=== PATIENT | female | born 1985 | race Caucasian/White ===

== ENCOUNTER 2017-10-06 04:51 | Emergency (ER) | payer BC, OTHER ==
[~2017-10-06] VITALS: Ht 157.5 cm; Wt 52.2 kg
[2017-10-06] MEDS ORDERED: ESCITALOPRAM 20 MG (05:14)
[2017-10-06] MEDS ORDERED: ORSYTHIA (05:14)
[2017-10-06 05:16] LABS: BILIRUBIN,URINE NEGATIVE (NEGATIVE); CLARITY,URINE VERY CLOUDY; COLOR,URINE YELLOW; GLUCOSE, URINE (UA) NEGATIVE (NEGATIVE); KETONES,URINE NEGATIVE (NEGATIVE); LEUKOCYTE ESTERASE ,URINE 3+ (NEGATIVE); NITRITE,URINE POSITIVE (NEGATIVE); PH,URINE 6 (5-9); PROTEIN,URINE 4+ (NEGATIVE); UROBILINOGEN,URINE NORMAL (NORMAL)
[2017-10-06] MEDS ORDERED: LACTATED RINGERS 1,000 ML IV ONE (05:19)
[2017-10-06] MEDS ORDERED: KETOROLAC 30 MG/ML VIAL IVP STA (05:19)
[2017-10-06 05:21] LABS: BACTERIA,URINE LARGE /HPF; RBC,URINE 50-100 /HPF; WBC,URINE TNTC /HPF
--- NOTE | 2017-10-06 05:27 | ED Abdominal Pain ---
General Chief Complaint: Abdominal/GI Problems Stated Complaint: PAIN OVER RT OVARY ON TO BACK Nursing Triage Note: PT PRESENTS TO ER WITH COMPLAINT OF RLQ ABD PAIN THAT RADIATES TO THE BACK. PT STATES SHE FEELS IT IS WHERE HER RIGHT OVARY IS. LMP 09/30/17 Sepsis Screen: No Definite Risk Source of Information: Patient Exam Limitations: No Limitations History of Present Illness Date Seen by Provider: Oct 06, 2017 Time Seen by Provider: 05:03 Initial Comments PT ARRIVES VIA POV FROM HOME C/O RLQ PAIN RADIATING TO RIGHT FLANK SINCE 0 YESTERDAY--WOKE HER UP YESTERDAY BACK PAIN WAS SEVERE, AND PAIN WAXED AND WANED AND FELT LIKE SEVERE CRAMPING/MUSCLE SPASMS. NO PAIN IN BACK FEELS LIKE A BAD BRUISE PAIN IN RLQ / RIGHT GROIN IS NOW "HORRIBLE" NO URINARY SYMPTOMS PT UNAWARE OF FEVER--TEMP IS 100 ON ARRIVAL HERE NO NAUSEA/VOMITING LMP--BEGAN ON Thursday09/30/17 AND IS ALMOST OVER NOW. NORMAL. ON OCP'S PCP: DR. MONTOYA Allergies and Home Medications Allergies Coded Allergies: No Known Drug Allergies (Unverified , 10/06/17) Home Medications Ciprofloxacin HCl 500 Mg Tablet, 500 MG PO BID Prescribed by: LAURA RAMIREZ on 10/06/17645 Tramadol HCl 50 Mg Tablet, 50 MG PO Q4H Prescribed by: LAURA RAMIREZ on 10/06/1746 Patient Home Medication List Home Medication List Reviewed: Yes Review of Systems Constitutional: see HPI Respiratory: No Symptoms Reported Cardiovascular: No Symptoms Reported Gastrointestinal: See HPI, Abdominal Pain; Denies Nausea, Denies Vomiting Genitourinary: Denies Burning, Denies Frequency; Flank Pain; Denies Hematuria, Denies Incontinence, Denies Pain, Denies Urgency Musculoskeletal: see HPI, back pain Skin: no symptoms reported Psychiatric/Neurological: No Symptoms Reported Endocrine: No Symptoms Reported Hematologic/Lymphatic: No Symptoms Reported Past Sbxgdml-Deyren-Wuqxre Hx Patient Social History Alcohol Use: Denies Use Recreational Drug Use: No Smoking Status: Never a Smoker Recent Foreign Travel: No Contact w/Someone Who Travel: No Recent Infectious Disease Expo: No Recent Hopitalizations: No Immunizations Up To Date Tetanus Booster (TDap): Unknown PED Vaccines UTD: Yes Seasonal Allergies Seasonal Allergies: No Past Medical History Surgeries: Yes (LAPAROSCOPY--ABLATION OF ENDOMETRIOSIS IMPLANTS AND APPY 2013) Abdominal, Appendectomy, Tonsillectomy Respiratory: No Cardiac: No Neurological: No : No Female Reproductive Disorders: Endometriosis Genitourinary: No Gastrointestinal: No Musculoskeletal: No Endocrine: No HEENT: No Cancer: No Psychosocial: No Integumentary: No Blood Disorders: No Physical Exam Vital Signs Vital Signs - First Documented 10/06/17 05:01 Temp 100.4 Pulse 77 Resp 20 B/P (MAP) 120/73 (89) Pulse Ox 100 O2 Delivery Room Air Capillary Refill : Less Than 3 Seconds Height/Weight/BMI Height: 5'2.00" Weight: 115lbs. oz. 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 tested, no motor/sensory deficits, alert, normal mood/affect, oriented x 3 Skin: normal color, warm/dry Focused Exam Lactate Level 10/06/17 05:27: Lactic Acid Level 0.98 Lactic Acid Level Laboratory Tests Test 10/06/17 05:27 Lactic Acid Level 0.98 MMOL/L (0.50-2.00) Progress/Results/Core Measures Results/Orders Lab Results Laboratory Tests Test 10/06/17 05:08 10/06/17 05:27 Range/Units Urine Color YELLOW Urine Clarity VERY CLOUDY H Urine pH 6 5-9 Urine Specific [place] 1.020 1.016-1.022 Urine Protein 4+ NEGATIVE Urine Glucose (UA) NEGATIVE NEGATIVE Urine Ketones NEGATIVE NEGATIVE Urine Nitrite POSITIVE H NEGATIVE Urine Bilirubin NEGATIVE NEGATIVE Urine Urobilinogen NORMAL NORMAL MG/DL Urine Leukocyte Esterase 3+ H NEGATIVE Urine RBC (Auto) 4+ H NEGATIVE Urine RBC 50-100 H /HPF Urine WBC TNTC H /HPF Urine Squamous Epithelial Cells 10-25 H /HPF Urine Crystals NONE /LPF Urine Bacteria LARGE H /HPF Urine Casts NONE /LPF Urine Mucus LARGE H /LPF Urine Culture Indicated YES White Blood Count 11.1 H 4.3-11.0 10^3/uL Red Blood Count 3.84 L 4.35-5.85 10^6/uL Hemoglobin 12.4 11.5-16.0 G/DL Hematocrit 37 35-52 % Mean Corpuscular Volume 96 80-99 FL Mean Corpuscular Hemoglobin 32 25-34 PG Mean Corpuscular Hemoglobin Concent 34 32-36 G/DL Red Cell Distribution Width 12.8 10.0-14.5 % Platelet Count 259 130-400 10^3/uL Mean Platelet Volume 8.7 7.4-10.4 FL Neutrophils (%) (Auto) 77 H 42-75 % Lymphocytes (%) (Auto) 14 12-44 % Monocytes (%) (Auto) 8 0-12 % Eosinophils (%) (Auto) 1 0-10 % Basophils (%) (Auto) 0 0-10 % Neutrophils # (Auto) 8.5 H 1.8-7.8 X 10^3 Lymphocytes # (Auto) 1.5 1.0-4.0 X 10^3 Monocytes # (Auto) 0.9 0.0-1.0 X 10^3 Eosinophils # (Auto) 0.1 0.0-0.3 10^3/uL Basophils # (Auto) 0.0 0.0-0.1 10^3/uL Sodium Level 138 135-145 MMOL/L Potassium Level 3.7 3.6-5.0 MMOL/L Chloride Level 106 98-107 MMOL/L Carbon Dioxide Level 23 21-32 MMOL/L Anion Gap 9 5-14 MMOL/L Blood Urea Nitrogen 13 7-18 MG/DL Creatinine 0.75 0.60-1.30 MG/DL Estimat Glomerular Filtration Rate > 60 BUN/Creatinine Ratio 17 Glucose Level 94 70-105 MG/DL Lactic Acid Level 0.98 0.50-2.00 MMOL/L Calcium Level 9.0 8.5-10.1 MG/DL Total Bilirubin 0.9 0.1-1.0 MG/DL Aspartate Amino Transf (AST/SGOT) 17 5-34 U/L Alanine Aminotransferase (ALT/SGPT) 11 0-55 U/L Alkaline Phosphatase 49 40-136 U/L Total Protein 6.6 6.4-8.2 GM/DL Albumin 4.0 3.2-4.5 GM/DL Amylase Level 38 25-125 U/L Lipase 9 8-78 U/L My Orders Orders - LAURA RAMIREZ DO Ua Culture If Indicated (10/06/17 05:03) Urine Bedside (10/06/17 05:03) Saline Lock/Iv-Start (10/06/17 05:19) Ct Abd/Pelvis Wo(Kidney Stone) (10/06/17 05:19) Amylase (10/06/17 05:19) Cbc With Automated Diff (10/06/17 05:19) Comprehensive Metabolic Panel (10/06/17 05:19) Lactic Acid Analyzer (10/06/17 05:19) Lipase (10/06/17 05:19) Blood Culture (10/06/17 05:19) Abdomen/Kub 1view (10/06/17 05:19) Saline Lock/Iv-Start (10/06/17 05:19) Lactated Ringers (Lr 1000 Ml Iv Solution (10/06/17 05:19) Ketorolac Injection (Toradol Injection) (10/06/17 05:19) Urine Culture (10/06/17 05:08) Ceftriaxone Injection (Rocephin Injectio (10/06/17 05:30) Medications Given in ED Current Medications Medications Dose Ordered Sig/Chandler Route Start Time Stop Time Status Last Admin Dose Admin Ceftriaxone Sodium 1000 mg/ Sodium Chloride 50 ml @ 100 mls/hr ONCE ONCE IV 10/06/17 05:30 10/06/17 05:59 DC 10/06/17 06:05 100 MLS/HR Lactated Ringer's 1,000 ml @ 0 mls/hr Q0M ONCE IV 10/06/17 05:19 10/06/17 05:23 DC 10/06/17 05:35 1,000 MLS/HR Vital Signs/I&O 10/06/17 05:01 Temp 100.4 Pulse 77 Resp 20 B/P (MAP) 120/73 (89) Pulse Ox 100 O2 Delivery Room Air Blood Pressure Mean: 89 Urine -Bedside: Negative Progress Progress Note : Progress Note PAIN MUCH IMPROVED WITH TORADOL Diagnostic Imaging Comments KUB--NO ACUTE PROCESS, PENDING RADIOLOGIST REVIEW CT ABDOMEN / PELVIS--APPARENT DUPLEX RIGHT KIDNEY WITH MILD TO MODERATE RIGHT HYDRONEPHROSIS/HYDROURETER WITH RIGHT PERIURETERAL STRANDING. NO EVIDENCE OF URETERAL STONE. . SUSPECTED 2 CM LEFT OVARIAN CYST--PER [facility] VIA FAX @ [id number] Reviewed: Reviewed by Me Departure Impression Primary Impression: Urinary tract infection Additional Impression: Pyelonephritis Disposition: 01 HOME, SELF-CARE Condition: Improved Departure-Patient Inst. Referrals: BRE MONTOYA MD (PCP/Family) Primary Care Physician Patient Instructions: Urinary Tract Infection, Adult (DC) Add. Discharge Instructions: LOTS OF CLEAR LIQUIDS--NO COFFEE, POP OR TEA TYLENOL AND MOTRIN NEEDED FOR PAIN OR FEVER FOLLOW UP WITH DR. MONTOYA IN 2-3 DAYS FOR FURTHER CARE All discharge instructions reviewed with patient and/or family. Voiced understanding. Scripts Tramadol HCl (Ultram) 50 Mg Tablet 50 MG PO Q4H, #20 TAB Prov: LAURA RAMIREZ DO 10/06/17 Ciprofloxacin HCl (Cipro) 500 Mg Tablet 500 MG PO BID, #20 TAB Prov: LAURA RAMIREZ DO 10/06/17 LAURA RAMIREZ DO Oct 06, 2017 05:27
[2017-10-06] MEDS ORDERED: cefTRIAXone INJECTION 1,000 MG in NS (IVPB) 50 ML IV ONE (05:30)
[2017-10-06 05:39] LABS: BASOPHILS % (AUTO) 0 % (0-10); EOSINOPHILS # (AUTO) 0.1 10^3/uL (0.0-0.3); EOSINOPHILS % (AUTO) 1 % (0-10); HEMATOCRIT 37 % (35-52); HEMOGLOBIN 12.4 G/DL (11.5-16.0); LYMPHOCYTES # (AUTO) 1.5 X 10^3 (1.0-4.0); LYMPHOCYTES % (AUTO) 14 % (12-44); MEAN CORPUSCULAR HEMOGLOBIN 32 PG (25-34); MEAN CORPUSCULAR HGB CONC 34 G/DL (32-36); MEAN CORPUSCULAR VOLUME 96 FL (80-99); MEAN PLATELET VOLUME 8.7 FL (7.4-10.4); MONOCYTES # (AUTO) 0.9 X 10^3 (0.0-1.0); MONOCYTES % (AUTO) 8 % (0-12); NEUTROPHILS # (AUTO) 8.5 X 10^3 (1.8-7.8); NEUTROPHILS % (AUTO) 77 % (42-75); PLATELET COUNT 259 10^3/uL (130-400); RED BLOOD COUNT 3.84 10^6/uL (4.35-5.85); RED CELL DISTRIBUTION WIDTH 12.8 % (10.0-14.5); WHITE BLOOD COUNT 11.1 10^3/uL (4.3-11.0)
[2017-10-06 06:01] LABS: ALANINE AMINOTRANSFERASE 11 U/L (0-55); ALKALINE PHOSPHATASE 49 U/L (40-136); AMYLASE 38 U/L (25-125); BILIRUBIN,TOTAL 0.9 MG/DL (0.1-1.0); BUN/CREATININE RATIO 17; CARBON DIOXIDE 23 MMOL/L (21-32); CHLORIDE 106 MMOL/L (98-107); CREATININE SERUM 0.75 MG/DL (0.60-1.30); GFR ESTIMATED > 60; GLUCOSE 94 MG/DL (70-105); LIPASE 9 U/L (8-78); POTASSIUM 3.7 MMOL/L (3.6-5.0); SODIUM 138 MMOL/L (135-145); TOTAL PROTEIN 6.6 GM/DL (6.4-8.2)
[2017-10-06] MEDS ORDERED: CIPR-225 PO (06:46)
[2017-10-06] MEDS ORDERED: TRAM-42 PO (06:46)
[2017-10-06 06:57] VITALS: BP 105/60
--- NOTE | 2017-10-06 07:13 | Diagnostic Imaging Report ---
PROCEDURE: CT urinary tract, rule out kidney stone. TECHNIQUE: Multiple contiguous axial images were obtained through the abdomen and pelvis without the use of intravenous contrast. INDICATION: Right lower quadrant pain. Comparison made with prior examination of 09/09/2007. FINDINGS: The heart size is normal. The lung bases are clear. The liver is normal in size without focal lesions. Gallbladder is unremarkable. No biliary ductal dilatation. Spleen is normal. The pancreas and adrenal glands are unremarkable. Left kidney is normal in appearance. There appears to be mild right hydronephrosis and mild hydroureter with some surrounding right periureteral stranding. There is however no definitive evidence of a ureteral calculus. The aorta is nonaneurysmal. Bowel gas pattern is nonspecific. There is a 2 cm cyst in the pelvis. No ascites. No free air. There is no pelvic mass or adenopathy. The osseous structures are unremarkable. IMPRESSION: Mild right hydronephrosis and hydroureter with some surrounding perinephric and perirenal stranding. There is no definitive evidence of a ureteral calculus. This may reflect recently passed calculus although other etiologies such as ascending UTI or pyelonephritis are a consideration. Recommend clinical correlation. A 2 cm left adnexal cyst, presumably ovarian. This could be better evaluated with pelvic ultrasound if clinically warranted. No other acute abnormality in the abdomen or pelvis. Dictated by: Dictated on workstation # [id number]
--- NOTE | 2017-10-06 07:22 | Diagnostic Imaging Report ---
INDICATION: Right lower quadrant pain. FINDINGS: The lung bases are clear. The bowel gas pattern is nonspecific. There is no free air. There are no abnormal abdominal calcifications. IMPRESSION: Nonspecific bowel gas pattern Dictated by: Dictated on workstation # [id number]
== END 2017-10-06 06:57 | disposition home or self-care (01) ==
LOC: EDUNIT# 04:51 → ER 04:56
DX: N39.0 Urinary tract infection, site not specified (principal); N12 Tubulo-interstitial nephritis, not specified as acute or chronic; Z90.49 Acquired absence of other specified parts of digestive tract; Z90.89 Acquired absence of other organs
CPT/HCPCS: 36415; 74018; 74176; 80053; 81000; 82150; 83605; 83690; 84703; 85025; 87040; 87088; 87186; 96361; 96365; 96375

== ENCOUNTER 2022-04-29 05:29 | Outpatient (CLI) | payer OTHER ==
[~2022-04-29] VITALS: Ht 160 cm; Wt 59.1 kg
[~2022-04-29 05:29] MED LIST: CIPR-225 PO; ESCITALOPRAM 20 MG; ORSYTHIA; TRAM-42 PO
== END 2022-05-01 08:50 ==
LOC: PREOP 05:29
PROVIDERS: ATTEND Obstetrics & Gynecology
DX: Z01.818 Encounter for other preprocedural examination (principal); N88.8 Other specified noninflammatory disorders of cervix uteri

== ENCOUNTER 2022-05-06 08:23 | Day surgery (SDC) | payer OTHER ==
[2022-05-06] VITALS (10 sets, daily range): BP systolic 89–108; BP diastolic 50–74
[2022-05-06] MEDS ORDERED: LACTATED RINGERS 1,000 ML IV PRN (08:30)
[2022-05-06] MEDS ORDERED: LIDOCAINE PF 2% 5 ML (XYLOCAINE) VIAL ONE (08:39)
[2022-05-06] MEDS ORDERED: proPOfol 200 MG/20 ML (DIPRIVAN) VIAL IV ONE (08:39)
[2022-05-06] MEDS ORDERED: fentaNYL INJ 100 MCG/2 ML AMP ONE (08:39)
[2022-05-06] MEDS ORDERED: ONDANSETRON 4 MG/2 ML (SDV) Z0FRAN ONE (08:39)
[2022-05-06] MEDS ORDERED: MIDAZOLAM 2 MG/2 ML (VERSED) VIAL ONE (08:39)
[2022-05-06] MEDS ORDERED: SEVOFLURANE (ULTANE) 15 ML INHAL SOLN ONE (08:39)
[2022-05-06] MEDS ORDERED: BUP/EPI 0.25% 1:200,000 (MARCAINE) 30 ML VIAL ONE (08:45)
[2022-05-06 08:55] LABS: BASOPHILS % (AUTO) 1 % (0-10); EOSINOPHILS # (AUTO) 0.2 10^3/uL (0.0-0.3); EOSINOPHILS % (AUTO) 2 % (0-10); HEMATOCRIT 38 % (35-52); HEMOGLOBIN 12.7 g/dL (11.5-16.0); LYMPHOCYTES # (AUTO) 2.3 10^3/uL (1.0-4.0); LYMPHOCYTES % (AUTO) 36 % (12-44); MEAN CORPUSCULAR HEMOGLOBIN 32 pg (25-34); MEAN CORPUSCULAR HGB CONC 34 g/dL (32-36); MEAN CORPUSCULAR VOLUME 94 fL (80-99); MEAN PLATELET VOLUME 8.5 fL (9.0-12.2); MONOCYTES # (AUTO) 0.5 10^3/uL (0.0-1.0); MONOCYTES % (AUTO) 7 % (0-12); NEUTROPHILS # (AUTO) 3.4 10^3/uL (1.8-7.8); NEUTROPHILS % (AUTO) 53 % (42-75); PLATELET COUNT 314 10^3/uL (130-400); WHITE BLOOD COUNT 6.4 10^3/uL (4.3-11.0)
[2022-05-06] MEDS ORDERED: GLYCOPYRROLATE 0.2 MG/ML (ROBINUL) 2 ML VIAL ONE (09:13)
[2022-05-06] MEDS ORDERED: PHENYLEPHRINE 100 MCG/ML 10 ML (ANESTHESIA) SYR ONE (09:17)
--- NOTE | 2022-05-06 09:35 | Discharge Inst-Women's Service ---
Discharge Inst-Women's Serv Consults/Follow Up Orders/Referrals Dr. Arnold in 2 weeks Activity Nothing Inside Vagina: No Douching, No Thompson (x 1 week), No Tampons Symptoms to Report to : Bleeding Excessive, Pain Increased, Fever Over 101 Degrees F, Vaginal Bleeding Increase, Questions/Concerns For Any Problems or Questions: Contact Your Physician CADY ARNOLD DO May 06, 2022 09:35
[2022-05-06] MEDS ORDERED: IBUP-1773 PO (09:36)
[2022-05-06] MEDS ORDERED: ACHD5005 PO (09:36)
[2022-05-06] MEDS ORDERED: HYDROcodone/APAP 5 MG/325 MG (LORTAB) TAB PO PRN (09:45)
[2022-05-06] MEDS ORDERED: KETOROLAC 30 MG/ML VIAL IVP ONE (09:45)
[2022-05-06] MEDS ORDERED: HYDROmorphone 2 MG/ML VIAL (DILAUDID) IV ONE (09:45)
[2022-05-06] MEDS ORDERED: ONDANSETRON 4 MG/2 ML (SDV) Z0FRAN IVP PRN ×2 (09:45)
[2022-05-06] MEDS ORDERED: D5 LR IV SOLUTION 1,000 ML IV SCH (09:45)
[2022-05-06] MEDS ORDERED: BUP/EPI 0.25% 1:200,000 (MARCAINE) 30 ML VIAL INJ ONE (10:08)
--- NOTE | 2022-05-06 15:32 | OPERATIVE REPORT ---
PREOPERATIVE DIAGNOSIS: A 36-year-old with cervical cyst. POSTOPERATIVE DIAGNOSIS: A 36-year-old with cervical cyst. PROCEDURE: Exam under anesthesia and removal of cervical cyst. SURGEON: Cady Arnold DO ANESTHESIA: LMA, General. ESTIMATED BLOOD LOSS: Minimal. URINE OUTPUT: 100 mL drained at start of the procedure. FLUIDS: 700 mL of lactated Ringer's solution. FINDINGS: A 2 cm cervical cyst, likely a nabothian cyst at the external cervical os. Grossly normal-appearing external female genitalia, normal-appearing cervix. SPECIMEN SENT: Cervical cyst. INDICATIONS FOR PROCEDURE: This 36-year-old female was a patient who had sought care for routine Women's Health visit. She has been attempting to get ; however, noticed that her periods are getting heavier and more painful and they were not light and less painful like they had been in years leading up to this. On examination, I noted a rather large nabothian cyst at the external cervical os including the opening of the cervical os. I discussed with the patient this could be a potential problem. Also discussed with the patient how the cervical cyst could be preventing her from becoming that she desired. Discussed with the patient removal of this and this would not be a good idea to do in the office due to the amount of bleeding that we may incur. Discussed with the patient doing this under anesthesia. She was agreeable to proceed. After all of her questions were answered, consent was obtained in the preoperative area. The patient was taken to the operating room. OPERATIVE REPORT IN DETAIL: Once in the operating room, anesthesia was administered and found to be adequate. She was placed in dorsal lithotomy position, prepped and draped in normal sterile fashion. A timeout was performed. The bladder was drained using straight catheterization. A weighted speculum inserted to the patient's vagina. A ring retractor was used on the cervix, which was grasped at 12 o'clock position using a long Allis clamp. I then performed paracervical block at 3 and 9 o'clock positions on the cervix using 0.25% Marcaine, 5 mL were injected into each site. Care was taken to aspirate for injecting. I then grasped the cystic structure using an Allis clamp. I make a circular incision around it using an 11 blade knife, freeing it from the cervix and the cervical stroma itself. This was sent as cervical cyst biopsy. I am able to remove it intact. I then make the dissection planes of my excision hemostatic using Bovie cautery, after which there was no active bleeding noted from any of my dissection planes. I removed all instruments from the patient's vagina. The patient tolerated the procedure well and was taken to recovery area in stable condition. Lap and sponge count was correct at the end of the procedure. Instrument counts correct as well. Job ID: [id number] DocumentID: [id number] Dictated Date: 05/06/2022 12:46:37 Visual Inspector Date: 05/06/2022 15:31:00 Dictated By: CADY ARNOLD DO
--- NOTE | 2022-05-06 20:39 | Anesthesia-General Post-Op ---
General Patient Condition Mental Status/LOC: Same as Preop Cardiovascular: Satisfactory Nausea/Vomiting: Absent Respiratory: Satisfactory Pain: Controlled Complications: Absent Post Op Complications Complications None Follow Up Care/Instructions Patient Instructions None needed. Anesthesia/Patient Condition Patient Condition Patient is doing well, no complaints, stable vital signs, no apparent adverse anesthesia problems. No complications reported per nursing. D/C home per [facility] Criteria: Yes MAAME PALMA CRNA May 06, 2022 20:39
== END 2022-05-06 11:25 | disposition home or self-care (01) ==
LOC: SDC 08:23
PROVIDERS: ATTEND Obstetrics & Gynecology
DX: N88.8 Other specified noninflammatory disorders of cervix uteri (principal); K21.9 Gastro-esophageal reflux disease without esophagitis
CPT/HCPCS: 36415; 84703; 85025; 86850; 86900; 86901; 87081

== ENCOUNTER → 2023-01-27 | Outpatient (CLI) | payer OTHER ==
[~2023-01-27] VITALS: Ht 160 cm; Wt 58.6 kg
[~2023-01-27] MED LIST changes: +ACHD5005 PO; +BACI1TAB24 PO; +FEXO-14 PO; +IBUP-1773 PO; +IBUP-844 PO; +MULT-1136 PO
== END | disposition home or self-care (01) ==
LOC: PREOP 05:29
PROVIDERS: ATTEND Obstetrics & Gynecology
DX: Z01.818 Encounter for other preprocedural examination (principal)

== ENCOUNTER 2023-02-03 07:34 | Day surgery (SDC) | payer OTHER ==
[2023-02-03] VITALS (11 sets, daily range): BP systolic 98–130; BP diastolic 64–89
[~2023-02-03] VITALS: Ht 160 cm; Wt 58.6 kg
[~2023-02-03 07:34] MED LIST changes: -IBUP-844 PO
--- NOTE | 2023-02-03 08:27 | Progress Note-Pre Operative ---
Pre-Operative Progress Note Date of Available H&P: Feb 03, 2023 Date H&P Reviewed: Feb 03, 2023 Time H&P Reviewed: 08:25 History & Physical: H&P Reviewed, Patient Examed Pre-Operative Diagnosis: CPP, Dysmenorrhea, Infertility CADY ARNOLD DO Feb 03, 2023 08:27
[2023-02-03] MEDS ORDERED: KETOROLAC INJ 30 MG/ML VIAL IVP ONE (08:30)
[2023-02-03] MEDS ORDERED: D5 LR 1,000 ML IV SOLN 1,000 ML IV SCH (08:30)
[2023-02-03] MEDS ORDERED: ONDANSETRON INJECTION 4 MG/2 ML (SDV) IVP PRN ×2 (08:30→12:00)
[2023-02-03] MEDS ORDERED: HYDROcodone/ACETAMINOPHEN 5 MG/325 MG TABLET PO PRN (08:30)
[2023-02-03] MEDS ORDERED: IBUPROFEN 600 MG TABLET PO PRN (08:30)
[2023-02-03 08:42] LABS: BASOPHILS % (AUTO) 1 % (0-10); EOSINOPHILS # (AUTO) 0.1 10^3/uL (0.0-0.3); EOSINOPHILS % (AUTO) 2 % (0-10); HEMATOCRIT 38 % (35-52); LYMPHOCYTES % (AUTO) 39 % (12-44); MEAN CORPUSCULAR HEMOGLOBIN 32 pg (25-34); MEAN CORPUSCULAR HGB CONC 34 g/dL (32-36); MEAN CORPUSCULAR VOLUME 93 fL (80-99); MEAN PLATELET VOLUME 8.7 fL (9.0-12.2); MONOCYTES # (AUTO) 0.4 10^3/uL (0.0-1.0); MONOCYTES % (AUTO) 9 % (0-12); NEUTROPHILS # (AUTO) 2.6 10^3/uL (1.8-7.8); NEUTROPHILS % (AUTO) 49 % (42-75); PLATELET COUNT 323 10^3/uL (130-400); WHITE BLOOD COUNT 5.2 10^3/uL (4.3-11.0)
[2023-02-03] MEDS ORDERED: BUPIVACAINE 0.25% 30 ML VIAL ONE (08:48)
[2023-02-03] MEDS ORDERED: BUPIVACAINE 0.25% 30 ML VIAL IJ ONE (09:05)
[2023-02-03] MEDS: LACTATED RINGERS 1,000 ML 1,000 ML IV PRN ×2 (09:22→11:21)
[2023-02-03] MEDS ORDERED: MIDAZOLAM INJ 2 MG/2 ML VIAL ONE ×2 (09:38→09:49)
[2023-02-03] MEDS ORDERED: MIDAZOLAM INJ 2 MG/2 ML VIAL IVP ONE (09:45)
[2023-02-03] MEDS ORDERED: ROCURONIUM 50 MG/5 ML VIAL IV ONE (09:47)
[2023-02-03] MEDS ORDERED: LIDOCAINE PF 2% 5 ML VIAL ONE (09:47)
[2023-02-03] MEDS ORDERED: proPOfol INJECTION 200 MG/20 ML VIAL IV ONE (09:47)
[2023-02-03] MEDS ORDERED: ONDANSETRON INJECTION 4 MG/2 ML (SDV) ONE (09:47)
[2023-02-03] MEDS ORDERED: dexAMETHasone INJ 10 MG/ML 1 ML VIAL ONE (09:47)
[2023-02-03] MEDS ORDERED: fentaNYL INJECTION 100 MCG/2 ML VIAL ONE (09:50)
--- NOTE | 2023-02-03 10:00 | Discharge Inst-Women's Service ---
Discharge Inst-Women's Serv Depart Medication/Instructions New, Converted or Re-Newed RX: Transmitted to Pharmacy Problems Reviewed?: Yes Consults/Follow Up Additional Follow Up: Yes Orders/Referrals Follow up with Dr. 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) Activity Activity: Activity as Tolerated Driving Instructions: No Driving for 1 Week NO SMOKING: NO SMOKING Nothing Inside Vagina: No Douching, No Malone, No Tampons Diet Discharge Diet: No Restrictions Symptoms to Report to : Bleeding Excessive, Pain Increased, Fever Over 101 Degrees F, Vaginal Bleeding Increase, Questions/Concerns For Any Problems or Questions: Contact Your Physician Skin/Wound Care Infection Signs and Symptoms: Increased Redness, Foul Odor of Wound, Increased Drainage, Skin Itchy or Has a Rash, Increased Swelling, Temperature Above 101 F Operative Area Clean and Dry: Keep Incision Clean/Dry Stitches/Kia/Dermabond: Dermabond, Care of Stitches Bathing Instructions: CADY Cortez DO Feb 03, 2023 10:00
[2023-02-03] MEDS ORDERED: ACHD5005 PO (10:01)
[2023-02-03] MEDS ORDERED: IBUP-844 PO (10:01)
[2023-02-03] MEDS ORDERED: GLYCOPYRROLATE INJ 0.2 MG/ML 2 ML VIAL ONE (11:35)
[2023-02-03] MEDS ORDERED: NEOSTIGMINE 1 MG/1ML 10 ML VIAL ONE (11:35)
[2023-02-03] MEDS ORDERED: SEVOFLURANE (ULTANE) 15 ML INHAL SOLN ONE (11:43)
[2023-02-03] MEDS ORDERED: KETOROLAC INJ 30 MG/ML VIAL ONE (11:49)
--- NOTE | 2023-02-03 11:52 | Anesthesia-General Post-Op ---
General Patient Condition Mental Status/LOC: Same as Preop Cardiovascular: Satisfactory Nausea/Vomiting: Absent Respiratory: Satisfactory Pain: Controlled Complications: Absent Post Op Complications Complications None Follow Up Care/Instructions Patient Instructions None needed. Anesthesia/Patient Condition Patient Condition Patient is doing well, no complaints, stable vital signs, no apparent adverse anesthesia problems. No complications reported per nursing. OLIVA DUVAL CRNA Feb 03, 2023 11:52
[2023-02-03] MEDS ORDERED: BUPIVACAINE 0.25% 30 ML VIAL INJ ONE (11:53)
[2023-02-03] MEDS ORDERED: HYDROmorphone INJECTION 2 MG/ML VIAL ONE (11:55)
[2023-02-03] MEDS ORDERED: HYDROmorphone INJECTION 2 MG/ML VIAL IV ONE (12:00)
[2023-02-03] MEDS ORDERED: fentaNYL INJECTION 100 MCG/2 ML VIAL IVP ONE (12:00)
[2023-02-03] MEDS ORDERED: HYDROcodone/ACETAMINOPHEN 5 MG/325 MG TABLET ONE (12:56)
--- NOTE | 2023-02-03 19:45 | OPERATIVE REPORT ---
DATE OF SERVICE: 02/03/2023 PREOPERATIVE DIAGNOSES: 1. A 37-year-old female with chronic pelvic pain. 2. Dysmenorrhea. 3. Dyspareunia. POSTOPERATIVE DIAGNOSES: 1. A 37-year-old female with chronic pelvic pain. 2. Dysmenorrhea. 3. Dyspareunia. PROCEDURE: Diagnostic laparoscopy with chromotubation. SURGEON: Cady Arnold DO ANESTHESIA: General endotracheal. ESTIMATED BLOOD LOSS: Minimal. URINE OUTPUT: 50 mL clear at the end of the procedure. FLUIDS: 1000 mL lactated Ringer's solution. FINDINGS: Grossly normal-appearing external female genitalia. Uterus with the uterine serosal endometriosis and adhesions, a patent left fallopian tube, right fallopian tube appears obstructed and slightly scarred with adhesions, endometriosis of the anterior and posterior aspects of the broad ligament, endometriosis of the anterior cul-de-sac, endometriosis of the posterior cul-de-sac and ovarian fossa as well as endometrial implants on the ovaries. SPECIMEN SENT: None. PROCEDURE: Laparoscopic cauterization of endometriosis with chromotubation. INDICATIONS FOR PROCEDURE: This 37-year-old female is the patient who had sought care in my office. She is the patient of [facility] for several years now. We have been following her and her attempts to become . She also reported increased pelvic pain, had a history of endometriosis diagnosed on laparoscopy over 7 years ago. The patient wished to proceed with more definitive and diagnostic measures due to her ongoing pain issues. I discussed with the patient diagnostic laparoscopy. Risks of procedure discussed with the patient in detail. After all of her questions were answered, she was agreeable to proceed. Consent was obtained. The patient was taken to the operating room. OPERATIVE REPORT IN DETAIL: Once in the operating room, anesthesia was administered and found to be adequate. She was placed in dorsal lithotomy position, prepped and draped in normal sterile fashion. A timeout was performed. A weighted speculum inserted to the patient's vagina, which allows me to place a Bernardo catheter using sterile technique. Right angle retractor was used to visualize cervix and was grasped at 12 o'clock position using a long Allis clamp. I then gently sound uterine cavity, depth was found to be 7 cm. I then placed a KrGMIer uterine manipulator to a depth of 7 cm, deploying the balloon within the uterus. I removed the other instruments from the patient's vagina, performed change of gloves, turned my attention to the abdomen where I infraumbilically infiltrated this area using 0.25% Marcaine. I made a 5 mm incision with a knife and directed Veress needle through the incision. Intraperitoneal placement was confirmed using saline drop test and opening pressure of 7 mmHg was noted. I proceeded with CO2 insufflation to max pressure of 15 mmHg, at which point I removed the Veress needle. I introduced a blunt laparoscopic 5 mm trocar through the incision until intraperitoneal placement was confirmed using the laparoscope. There was no evidence of damage from entry site. A brief scan of the upper abdominal anatomy appears to be grossly normal. I then have the patient placed in steep Trendelenburg where I am able to visualize all my pelvic anatomy as defined in my findings above. I placed suprapubic trocar, this is a 5 mm trocar placed under direct visualization of laparoscope. Once this was in place, I used a hook cautery to cauterize all the endometriosis implants that I can identify with the naked eye. There are multiple on bilateral ovaries. There were some in the ovarian fossa, posterior cul-de-sac, posterior aspect of the broad ligament, posterior serosal surface of the uterus, anterior serosal surface of the uterus, the anterior surface of the broad ligament. After all of these are cauterized, there was no active bleeding noted from any of the cauterization sites. I then performed a chromotubation using methylene blue using the Kronner uterine manipulator. I introduced a dye and there is spillage from the left fallopian tube readily. The right fallopian tube has no delay or evidence of filling after which I copiously irrigated the pelvis using normal saline. Once again, there was no active bleeding noted from any of my dissection planes and the methylene blue is irrigated out of the pelvis. I then had the patient taken out of steep Trendelenburg where I removed the suprapubic trocar under direct visualization of laparoscope. The infraumbilical trocars left in place to release the remainder of insufflation and introduce 10 mL of 0.25% Marcaine in peritoneal cavity for postoperative pain management. I then removed this trocar as well. Skin reapproximated using Dermabond. Kronner uterine manipulator was removed at the end. Bernardo catheter was removed at the end of the procedure. The patient tolerated the procedure well and was taken to recovery area in stable condition. Lap and sponge counts were correct at the end of the procedure. Instrument counts correct as well. Job ID: [id number] DocumentID: [id number] Dictated Date: 02/03/2023 12:11:51 Fundraising Consultant Date: 02/03/2023 19:43:00 Dictated By: CADY ARNOLD DO
== END 2023-02-03 14:25 | disposition home or self-care (01) ==
LOC: SDC 07:34
PROVIDERS: ATTEND Obstetrics & Gynecology
DX: N94.6 Dysmenorrhea, unspecified (principal); N94.10 Unspecified dyspareunia; N80.00 Endometriosis of the uterus, unspecified; N73.6 Female pelvic peritoneal adhesions (postinfective); N80.109 Endometriosis of ovary, unspecified side, unspecified depth; N94.5 Secondary dysmenorrhea; N80.30 Endometriosis of pelvic peritoneum, unspecified; N94.12 Deep dyspareunia; N97.9 Female infertility, unspecified; G89.29 Other chronic pain
CPT/HCPCS: 36415; 84703; 85025; 86850; 86900; 86901; 87081